=== PATIENT | female | born 1945 | race Caucasian/White ===

== ENCOUNTER 2023-10-23 21:05 | Emergency (ER) | payer OTHER, MEDICARE ==
[~2023-10-23] VITALS: Ht 162.6 cm; Wt 45.4 kg
[2023-10-23 22:47] VITALS: BP 150/80; O2SAT 97
== END 2023-10-23 22:48 | disposition home or self-care (01) ==
LOC: ER 21:14
DX: T18.0XXA Foreign body in mouth, initial encounter (principal); X58.XXXA Exposure to other specified factors, initial encounter; Y93.89 Activity, other specified; Y92.89 Other specified places as the place of occurrence of the external cause; Y99.8 Other external cause status
CPT/HCPCS: A4606; A4663